=== PATIENT | male | born 1945 | race Caucasian/White ===

== ENCOUNTER 2017-05-27 15:31 | Inpatient (IN) | payer OTHER ==
[~2017-05-27] VITALS: Ht 193 cm; Wt 98.9 kg
--- NOTE | ~2017-05-27 | EKG ---
[address] [place] [address] ELECTROCARDIOGRAM REPORT Name: MAX ESTRADA Room #: 247- ADM IN M.R.#: [id number] Admission: 05/27/17 Attend Phys: Jeronimo Hare DO Discharge: Date of : 47 Report #: [id number] THIS REPORT FOR: //name// [facility] Test Date: 2017-05-31 Test Time: 06:04:59 Pat Name: MAX ESTRADA Department: Room: [facility] Gender: M Speech/Language Therapist: CHRIS : 1945 Requested By: Tiesha Maurer Order Number: [id number] MD: Damien Vogt Measurements Intervals [place] Rate: 86 P: 13 AK: 174 QRS: -6 QRSD: 102 T: -20 QT: 431 QTc: 516 Interpretive Statements Sinus rhythm Inferior infarct, age indeterminate Anteroseptal infarct, oldProlonged QT interval Compared to ECG 05/30/2017 16:37:40 No significant changes Electronically Signed On 05-31-2017 8:15:27 PATHOLOGY LABORATORY DIRECTOR by Damien Vogt [email or web address] <ELECTRONICALLY SIGNED> By: Damien Vogt MD, [facility] 05/31/17 0815 [id number] [id number] Damien Vogt MD, [facility] /EPI
--- NOTE | ~2017-05-27 | HC ---
[facility] [place] [address] CONSULTATION Name: HARVINDERDIONEMAX Victor M Room #: 150-6 ADM IN M.R.#: [id number] Admission: 05/27/17 Attend Phys: Jeronimo Hare DO Discharge: Date of : 47 Report #: [id number] THIS REPORT FOR: //name// CC: Mukul Dickinson MD DATE OF SERVICE: 05/28/2017 HISTORY OF PRESENT ILLNESS: The patient is a 71-year-old white male who was transferred from [facility] yesterday for consideration of coronary artery bypass surgery. The patient had no previous history of heart disease. However, recently he has had intermittent tightness in his chest. It is usually related to exertion and associated with diaphoresis and lightheadedness. He then noticed that on May 26, he was at home, felt a heaviness in the chest, felt lightheaded and diaphoretic. The pain was worse when he took a deep breath. It persisted most of the evening. He called the ambulance and was brought to [facility] at approximately midnight on May 26. If he belched, the discomfort seemed to improve. He was noted to have an abnormal ECG. I saw him in consultation at [facility]. I felt his symptoms were consistent with unstable angina. I recommended cardiac catheterization. This was performed on May 27, at [facility] from the right radial artery. Because of tortuous aorta, I was unable to cross the aortic valve. Coronary angiogram showed a distal 30% stenosis of the left main artery. The LAD had a proximal 60% and distal 70% stenosis. The first diagonal branch had an ostial 90% stenosis. The first marginal branch had a 60% stenosis. The second marginal branch was noted to bifurcate a small limb had a 90% stenosis. The distal circumflex appeared to be occluded and filled by collaterals. The right coronary artery appeared to have an ostial 90% stenosis with a somewhat abnormal takeoff from the right coronary cusp. There is also a 70% stenosis of the mid right coronary artery. A 90% narrowing of the ostium of the posterior descending branch and an 80% stenosis of the distal posterolateral branch of the right coronary artery. Because of his diffuse severe multivessel coronary artery disease presentation with acute coronary syndrome, I recommended for consideration of coronary artery bypass surgery. He did undergo an echocardiogram at [facility] that showed an ejection fraction 60% with evidence of mild aortic stenosis and mild aortic insufficiency. The aortic root was mildly dilated, but not aneurysmal. The patient was then transferred by ambulance last night to [facility] for consideration of coronary artery bypass surgery. PAST MEDICAL HISTORY: Significant for an appendectomy, knee surgery, and hyperlipidemia. MEDICATIONS: Consist of aspirin and Crestor. [facility] [address] [place] [address] CONSULTATION Name: MAX ESTRADA Room #: 150-6 ADM IN M.R.#: [id number] Admission: 05/27/17 Attend Phys: Jeronimo Hare DO Discharge: Date of : 47 Report #: [id number] ALLERGIES: He had no known drug allergies. FAMILY HISTORY: His mother had a heart attack. SOCIAL HISTORY: He is . He and his live in [place]. He works on computers. No smoking or alcohol use. REVIEW OF SYSTEMS: He has had no history of stroke, asthma, peptic ulcer disease, liver disease, GI bleeding, kidney disease, cancer, psychiatric illness, or chronic skin condition. PHYSICAL EXAMINATION: VITAL SIGNS: Blood pressure was 120/60, pulse is 60. NECK: No carotid bruits. CHEST: Clear to auscultation. HEENT: Mucous members moist. HEART: Regular rate and rhythm, grade 2 systolic ejection murmur. ABDOMEN: Soft. EXTREMITIES: No edema. MUSCULOSKELETAL: Joint effusions. ECG, sinus rhythm, concave ST segment elevation in V2 and V3, T-wave inversion I and aVL. Chest x-ray, normal heart size, clear lung pryor. CT scan of the chest using the PE protocol showed no pulmonary embolus or aneurysm of the aorta. CT of the abdomen unremarkable. Sodium 141, potassium 1.3, and glucose 146. Troponin 0.06. White blood cell count 14, hemoglobin 13.1. IMPRESSION AND RECOMMENDATIONS: 1. Unstable angina. Severe multivessel coronary artery disease. Recommend coronary artery bypass surgery. 2. History of hyperlipidemia. The patient has been on a statin drug. 3. Mild aortic stenosis. <ELECTRONICALLY SIGNED> By: James Sandhu MD, FACC 05/30/17 0837 1025 1534 James Sandhu MD, FACC /nt
--- NOTE | ~2017-05-27 | EKG ---
[address] [place] [address] ELECTROCARDIOGRAM REPORT Name: MAX ESTRADA Room #: 213- ADM IN M.R.#: [id number] Admission: 05/27/17 Attend Phys: Jeronimo Hare DO Discharge: Date of : 47 Report #: [id number] THIS REPORT FOR: //name// [facility] Test Date: 2017-05-27 Test Time: 22:04:46 Pat Name: MAX ESTRADA Department: Room: 213 Gender: M Mapping Pilot: Amanda MULLER : 1945 Requested By: Damien Vogt Order Number: [id number] MD: Damien Vogt Measurements Intervals [place] Rate: 110 P: [place]: QRS: -8 QRSD: 80 T: 49 QT: 330 QTc: 447 Interpretive Statements Atrial fibrillation Inferior infarct, old ST elevation, consider anterior injury No previous ECG available for comparison Electronically Signed On 05-29-2017 9:45:40 ELECTRICAL ESTIMATOR by Damien Vogt [email or web address] <ELECTRONICALLY SIGNED> By: Damine Vogt MD, [facility] 05/29/17 0945 D: [id number] Damien Vogt MD, FACC /EPI
--- NOTE | ~2017-05-27 | EKG ---
[address] [place] [address] ELECTROCARDIOGRAM REPORT Name: MAX ESTRADA Room #: 213- ADM IN M.R.#: [id number] Admission: 05/27/17 Attend Phys: Jeronimo Hare DO Discharge: Date of : 47 Report #: [id number] THIS REPORT FOR: //name// [facility] Test Date: 2017-05-29 Test Time: 07:48:43 Pat Name: MAX ESTRADA Department: Room: 213 P Gender: M Body Engineer: SCOTT : 1945 Requested By: James Sandhu Order Number: [id number] MD: Damien Vogt Measurements Intervals [place] Rate: 88 P: 18 SC: 176 QRS: -13 QRSD: 87 T: 112 QT: 396 QTc: 480 Interpretive Statements Sinus rhythm Inferior infarct, old Anteroseptal infarct, old No previous ECG available for comparison Electronically Signed On 05-29-2017 10:04:29 HOUSEKEEPING MANAGER by Damien Vogt [email or web address] <ELECTRONICALLY SIGNED> By: Damien Vogt MD, [facility] 05/29/17 1004 0748 7 Damien Vogt MD, FACC /EPI
--- NOTE | ~2017-05-27 | EKG ---
[address] [place] [address] ELECTROCARDIOGRAM REPORT Name: MAX ESTRADA Room #: 247-P ADM IN M.R.#: [id number] Admission: 05/27/17 Attend Phys: Jeronimo Hare DO Discharge: Date of : 47 Report #: [id number] THIS REPORT FOR: //name// [facility] Test Date: 2017-05-30 Test Time: 16:37:40 Pat Name: MAX ESTRADA Department: Room: [facility] Gender: M Mind Reader: Amanda MULLER : 1945 Requested By: Tiesha Maurer Order Number: [id number] MD: James Hensley Measurements Intervals [place] Rate: 84 P: 17 [place]: 187 QRS: 63 QRSD: 108 T: -27 QT: 432 QTc: 511 Interpretive Statements Sinus rhythm Probable anteroseptal infarct, old Prolonged QT interval Baseline wander in lead(s) I,II,aVR,aVL Compared to ECG 05/29/2017 07:48:43 Prolonged QT interval now present Myocardial infarct finding still present Electronically Signed On 05-30-2017 21:36:43 GUEST ATTENDANT by James Hensley [email or web address] <ELECTRONICALLY SIGNED> By: James Hensley MD 05/30/17 2136 36 36 James Hensley MD /EPI
[~2017-05-27 15:31] MED LIST: ACETAMINOPHEN325 M1 PO; ASPIRIN EC81 M1 PO; CENTRUM COMPLE1 EACH PO; CRESTOR10 MG PO; FISH OIL 1,0001 EAC7 PO; FLAXSEED OIL1000 M2 PO; FLEXERIL PO; IBUPROFEN 400400 M1 PO; LEVAQUIN 500 M500 M1 PO
[2017-05-27] MEDS ORDERED: ENOXAPARIN80 MG/0.1 SUBQ (15:46)
[2017-05-27] MEDS ORDERED: TYLENOL325 MG PO (15:46)
[2017-05-27] MEDS ORDERED: NITROGLYCERIN0.4 MG SUBLING (15:47)
[2017-05-27 17:45] VITALS: BP 127/63
[2017-05-27 19:56] VITALS: BP 108/60
[2017-05-27 23:31] VITALS: BP 94/53
[2017-05-28 03:12] LABS: URINE BILIRUBIN NEGATIVE (Negative); URINE BLOOD NEGATIVE (Negative); URINE COLOR YELLOW; URINE GLUCOSE-RANDOM* NEGATIVE (Negative); URINE KETONES 1+ (Negative); URINE LEUKOCYTES-REFLEX NEGATIVE (Negative); URINE PROTEIN (DIPSTICK) TRACE (Negative); URINE SPECIFIC GRAVITY 1.015 (1.003-1.035)
[2017-05-28 03:48] VITALS: BP 94/64
[2017-05-28 04:34] LABS: HEMATOCRIT 36.2 % (42.0-52.0); HEMOGLOBIN 12.2 gm/dL (14.0-18.0); MCH 30.2 pg (26.0-34.0); MCHC 33.7 g/dL (28.0-37.0); MCV 89.6 fL (80.0-100.0); PLATELET COUNT 192 thou/uL (150-400); RBC 4.05 mil/uL (4.50-6.00); RDW 14.2 % (10.5-14.5); WBC 8.3 thou/uL (4.0-11.0)
[2017-05-28 04:35] LABS: MANUAL DIFF YES
[2017-05-28 04:46] LABS: APTT 33.3 Seconds (24.5-32.8)
[2017-05-28 04:56] LABS: ALBUMIN 2.9 g/dL (3.4-5.0); CALCIUM 8.1 mg/dL (8.5-10.1); CREATININE 1.1 mg/dL (0.7-1.3); POTASSIUM 3.8 mmol/L (3.5-5.1); PROTIME 10.6 Seconds (9.3-11.4); TOTAL BILIRUBIN 0.7 mg/dL (<0.1-1.0); TOTAL PROTEIN 6.3 g/dL (6.4-8.2)
[2017-05-28 05:02] LABS: CHOLESTEROL 125 mg/dL (<200); HDL CHOLESTEROL 53 mg/dL (>40); LDL CHOLESTEROL 61 mg/dL (<100); SERUM ASSESSMENT Clear; TC:HDL 2.4 Ratio (Not establshd); TRIGLYCERIDE 59 mg/dL (<150); TROPONIN-I 0.24 ng/mL (<0.06); VLDL 12 mg/dL (<40)
[2017-05-28 05:44] LABS: ABSOLUTE NEUTROPHILS 5.6 thou/uL (1.4-8.2); TOTAL CELL COUNT 100
[2017-05-28 07:34] VITALS: BP 115/65
[2017-05-28 11:34] VITALS: BP 128/67
[2017-05-28 16:20] VITALS: BP 123/73
[2017-05-28 19:40] VITALS: BP 120/70
[2017-05-28 23:04] VITALS: BP 121/75
[2017-05-29 00:10] LABS: GLYCOHEMOGLOBIN (HGB A1C) 5.3 % (4.8-5.6)
[2017-05-29 03:10] LABS: ABSOLUTE NEUTROPHILS 5.3 thou/uL (1.4-8.2); BASOPHILS 0.6 % (0.0-2.0); EOSINOPHILS 2.1 % (0.0-3.0); HEMATOCRIT 37.5 % (42.0-52.0); HEMOGLOBIN 12.5 gm/dL (14.0-18.0); LYMPHOCYTES 24.8 % (24.0-44.0); MCH 30.2 pg (26.0-34.0); MCHC 33.4 g/dL (28.0-37.0); MCV 90.4 fL (80.0-100.0); MONOCYTES 11.1 % (1.0-8.0); PLATELET COUNT 219 thou/uL (150-400); POLYS 61.4 % (36.0-66.0); RBC 4.15 mil/uL (4.50-6.00); RDW 13.5 % (10.5-14.5); WBC 8.6 thou/uL (4.0-11.0)
[2017-05-29 03:24] LABS: CALCIUM 8.6 mg/dL (8.5-10.1); CREATININE 1.2 mg/dL (0.7-1.3); POTASSIUM 4.2 mmol/L (3.5-5.1); TROPONIN-I 0.15 ng/mL (<0.06)
[2017-05-29 03:35] LABS: MANUAL DIFF NO
[2017-05-29 04:35] VITALS: BP 119/77
[2017-05-29 09:19] VITALS: BP 121/74
[2017-05-29 15:20] VITALS: BP 153/71
[2017-05-29 19:45] VITALS: BP 143/74
[2017-05-30] VITALS (7 sets, daily range): BP systolic 107–12119; BP diastolic 5–95
[2017-05-30 07:50] LABS: ABSOLUTE NEUTROPHILS 6.5 thou/uL (1.4-8.2); BASOPHILS 0.8 % (0.0-2.0); EOSINOPHILS 2.1 % (0.0-3.0); HEMATOCRIT 39.2 % (42.0-52.0); HEMOGLOBIN 12.9 gm/dL (14.0-18.0); LYMPHOCYTES 13.2 % (24.0-44.0); MCH 29.3 pg (26.0-34.0); MCHC 32.9 g/dL (28.0-37.0); MONOCYTES 10.2 % (1.0-8.0); PLATELET COUNT 257 thou/uL (150-400); POLYS 73.7 % (36.0-66.0); RDW 13.5 % (10.5-14.5); WBC 8.8 thou/uL (4.0-11.0)
[2017-05-30 07:51] LABS: MANUAL DIFF NO
[2017-05-30 07:56] LABS: CALCIUM 8.7 mg/dL (8.5-10.1); CREATININE 1.1 mg/dL (0.7-1.3); POTASSIUM 4.1 mmol/L (3.5-5.1)
[2017-05-30 15:08] LABS: APTT 35.7 Seconds (24.5-32.8); FIBRINOGEN 300.8 mg/dL (210-360); INR 1.4; PROTIME 14.7 Seconds (9.3-11.4)
[2017-05-30 15:16] LABS: HEMATOCRIT 24.5 % (42.0-52.0); HEMOGLOBIN 8.1 gm/dL (14.0-18.0); MCH 29.8 pg (26.0-34.0); MCHC 33.3 % (28.0-37.0); MCV 89.5 fL (80.0-100.0); RBC 2.74 mil/uL (4.50-6.00); RDW 13.2 % (10.5-14.5); WBC 11.5 thou/uL (4.0-11.0)
[2017-05-30 15:47] LABS: POC BE -4 mmol/L (-2.0 to +3.0); POC CA IONIZED 4.6 mg/dL (4.5-5.3); POC FiO2 100 %; POC GLUCOSE 145 mg/dL (70-99); POC HCO3 20.5 mmol/L (22.0-26.0); POC HEMOGLOBIN 11.9 g/dL (14.0-18.0); POC POTASSIUM 4.6 mmol/L (3.5-5.1); POC SODIUM 138 mmol/L (136-145); POC pCO2 31.6 mmHg (35.0-45.0); POC pH 7.418 (7.360-7.450)
[2017-05-30 15:47] LABS: POC BE -1 mmol/L (-2.0 to +3.0); POC CA IONIZED 5.6 mg/dL (4.5-5.3); POC FiO2 100 %; POC GLUCOSE 149 mg/dL (70-99); POC HCO3 24.6 mmol/L (22.0-26.0); POC HEMOGLOBIN 8.2 g/dL (14.0-18.0); POC POTASSIUM 4.3 mmol/L (3.5-5.1); POC SODIUM 140 mmol/L (136-145); POC pH 7.345 (7.360-7.450)
[2017-05-30 15:47] LABS: POC BE -3 mmol/L (-2.0 to +3.0); POC CA IONIZED 4.4 mg/dL (4.5-5.3); POC FiO2 100 %; POC GLUCOSE 157 mg/dL (70-99); POC HCO3 22.2 mmol/L (22.0-26.0); POC HEMOGLOBIN 9.9 g/dL (14.0-18.0); POC POTASSIUM 4.8 mmol/L (3.5-5.1); POC SODIUM 137 mmol/L (136-145); POC pCO2 38.8 mmHg (35.0-45.0); POC pH 7.366 (7.360-7.450)
[2017-05-30 15:47] LABS: POC BE 0 mmol/L (-2.0 to +3.0); POC CA IONIZED 4.4 mg/dL (4.5-5.3); POC FiO2 100 %; POC GLUCOSE 162 mg/dL (70-99); POC HCO3 25.9 mmol/L (22.0-26.0); POC HEMOGLOBIN 8.8 g/dL (14.0-18.0); POC POTASSIUM 4.7 mmol/L (3.5-5.1); POC SODIUM 142 mmol/L (136-145); POC pCO2 50.7 mmHg (35.0-45.0); POC pH 7.316 (7.360-7.450)
[2017-05-30 15:47] LABS: POC BE -1 mmol/L (-2.0 to +3.0); POC CA IONIZED 4.5 mg/dL (4.5-5.3); POC FiO2 100 %; POC GLUCOSE 180 mg/dL (70-99); POC HEMOGLOBIN 9.5 g/dL (14.0-18.0); POC POTASSIUM 4.3 mmol/L (3.5-5.1); POC SODIUM 141 mmol/L (136-145); POC pCO2 49.8 mmHg (35.0-45.0)
[2017-05-30 15:47] LABS: POC BE -3 mmol/L (-2.0 to +3.0); POC CA IONIZED 4.8 mg/dL (4.5-5.3); POC FiO2 100 %; POC GLUCOSE 137 mg/dL (70-99); POC HCO3 22.2 mmol/L (22.0-26.0); POC HEMOGLOBIN 10.5 g/dL (14.0-18.0); POC POTASSIUM 4.1 mmol/L (3.5-5.1); POC SODIUM 141 mmol/L (136-145); POC pCO2 35.4 mmHg (35.0-45.0); POC pH 7.405 (7.360-7.450)
[2017-05-30 15:47] LABS: POC BE 0 mmol/L (-2.0 to +3.0); POC CA IONIZED 4.5 mg/dL (4.5-5.3); POC FiO2 100 %; POC GLUCOSE 186 mg/dL (70-99); POC HCO3 25.5 mmol/L (22.0-26.0); POC HEMOGLOBIN 9.5 g/dL (14.0-18.0); POC POTASSIUM 4.5 mmol/L (3.5-5.1); POC SODIUM 140 mmol/L (136-145); POC pH 7.352 (7.360-7.450)
[2017-05-30 15:47] LABS: POC BE -2 mmol/L (-2.0 to +3.0); POC CA IONIZED 4.6 mg/dL (4.5-5.3); POC FiO2 100 %; POC GLUCOSE 118 mg/dL (70-99); POC HCO3 22.2 mmol/L (22.0-26.0); POC HEMOGLOBIN 12.2 g/dL (14.0-18.0); POC POTASSIUM 4.6 mmol/L (3.5-5.1); POC SODIUM 137 mmol/L (136-145); POC pCO2 31.6 mmHg (35.0-45.0); POC pH 7.453 (7.360-7.450)
[2017-05-30 15:47] LABS: POC BE 2 mmol/L (-2.0 to +3.0); POC CA IONIZED 4.3 mg/dL (4.5-5.3); POC FiO2 100 %; POC GLUCOSE 169 mg/dL (70-99); POC HEMOGLOBIN 9.5 g/dL (14.0-18.0); POC POTASSIUM 4.8 mmol/L (3.5-5.1); POC SODIUM 138 mmol/L (136-145); POC pCO2 42.6 mmHg (35.0-45.0)
[2017-05-30 15:47] LABS: POC BE -6 mmol/L (-2.0 to +3.0); POC CA IONIZED 4.4 mg/dL (4.5-5.3); POC FiO2 100 %; POC GLUCOSE 152 mg/dL (70-99); POC HEMOGLOBIN 10.5 g/dL (14.0-18.0); POC POTASSIUM 4.7 mmol/L (3.5-5.1); POC SODIUM 137 mmol/L (136-145); POC pCO2 37.6 mmHg (35.0-45.0); POC pH 7.335 (7.360-7.450)
[2017-05-30 15:47] LABS: POC BE 1 mmol/L (-2.0 to +3.0); POC CA IONIZED 4.3 mg/dL (4.5-5.3); POC FiO2 100 %; POC GLUCOSE 187 mg/dL (70-99); POC HCO3 25.8 mmol/L (22.0-26.0); POC HEMOGLOBIN 9.5 g/dL (14.0-18.0); POC POTASSIUM 5.1 mmol/L (3.5-5.1); POC SODIUM 139 mmol/L (136-145); POC pCO2 44.1 mmHg (35.0-45.0); POC pH 7.376 (7.360-7.450)
[2017-05-30 15:47] LABS: POC BE -3 mmol/L (-2.0 to +3.0); POC FiO2 100 %; POC GLUCOSE 142 mg/dL (70-99); POC HCO3 21.8 mmol/L (22.0-26.0); POC HEMOGLOBIN 8.2 g/dL (14.0-18.0); POC POTASSIUM 3.9 mmol/L (3.5-5.1); POC SODIUM 141 mmol/L (136-145); POC pCO2 37.5 mmHg (35.0-45.0); POC pH 7.372 (7.360-7.450)
[2017-05-30 16:30] LABS: CALCIUM 8.5 mg/dL (8.5-10.1); CREATININE 1.3 mg/dL (0.7-1.3); MAGNESIUM 2.5 mg/dL (1.8-2.4); POTASSIUM 4.3 mmol/L (3.5-5.1)
[2017-05-30 17:01] LABS: ABG SAMPLE TYPE ARTERIAL; BE(vivo) -7.2 mmol/L (-2 to +3); HCO3 18.5 mmol/L (22.0-26.0); LACTATE 1.57 mmol/L (0.5-2.0); O2(CT) 17.3 mL/dL (15.0-23.0); O2Hb 97.4 % (92.0-98.0); PO2 131.9 mmHg (80.0-100.0); sO2 98.4 % (92.0-98.0); tCO2 19.7 mmol/L (24.0-30.0)
[2017-05-30 17:02] LABS: STICK SITE ALINE; TIDAL VOLUME 650 ml; pH 7.305 (7.360-7.450)
[2017-05-30 17:23] LABS: HEMATOCRIT 33.7 % (42.0-52.0); HEMOGLOBIN 11.3 gm/dL (14.0-18.0); MCH 30.2 pg (26.0-34.0); MCHC 33.7 g/dL (28.0-37.0); MCV 89.7 fL (80.0-100.0); PLATELET COUNT 175 thou/uL (150-400); RBC 3.76 mil/uL (4.50-6.00); RDW 13.7 % (10.5-14.5); WBC 17.4 thou/uL (4.0-11.0)
[2017-05-30 17:24] LABS: MANUAL DIFF YES
[2017-05-30 17:37] LABS: APTT 34.3 Seconds (24.5-32.8); FIBRINOGEN 359.7 mg/dL (210-360)
[2017-05-30 17:41] LABS: ABSOLUTE NEUTROPHILS 15.1 thou/uL (1.4-8.2); TOTAL CELL COUNT 100
[2017-05-30 17:59] LABS: INR 1.2; PROTIME 11.9 Seconds (9.3-11.4)
[2017-05-30 18:37] LABS: ABG SAMPLE TYPE ARTERIAL; BE(vivo) -4.7 mmol/L (-2 to +3); HCO3 19.6 mmol/L (22.0-26.0); LACTATE 1.73 mmol/L (0.5-2.0); O2(CT) 15.7 mL/dL (15.0-23.0); O2Hb 95.1 % (92.0-98.0); PCO2 33.8 mmHg (35.0-45.0); PO2 84.9 mmHg (80.0-100.0); STICK SITE ALINE; TIDAL VOLUME 650 ml; pH 7.381 (7.360-7.450); sO2 96.3 % (92.0-98.0); tCO2 20.6 mmol/L (24.0-30.0)
[2017-05-30 18:38] LABS: ABG COMMENT CMV
[2017-05-30 19:07] LABS: ABG SAMPLE TYPE ARTERIAL; BE(vivo) -5.4 mmol/L (-2 to +3); HCO3 19.5 mmol/L (22.0-26.0); LACTATE 1.96 mmol/L (0.5-2.0); O2(CT) 16.3 mL/dL (15.0-23.0); O2Hb 96.5 % (92.0-98.0); PCO2 36.2 mmHg (35.0-45.0); PO2 101.4 mmHg (80.0-100.0); sO2 97.4 % (92.0-98.0); tCO2 20.6 mmol/L (24.0-30.0)
[2017-05-30 19:08] LABS: ABG COMMENT CPAP TRIAL.; Pressure Support 6 cm H20; STICK SITE ALINE
[2017-05-30 20:20] LABS: HEMATOCRIT 32.5 % (42.0-52.0); HEMOGLOBIN 10.9 gm/dL (14.0-18.0)
[2017-05-30 20:24] LABS: CREATININE 1.3 mg/dL (0.7-1.3); MAGNESIUM 2.1 mg/dL (1.8-2.4)
[2017-05-30 20:27] LABS: ABG SAMPLE TYPE ARTERIAL; BE(vivo) -1.5 mmol/L (-2 to +3); LACTATE 1.72 mmol/L (0.5-2.0); PCO2 37.9 mmHg (35.0-45.0); pH 7.401 (7.360-7.450); sO2 98.1 % (92.0-98.0); tCO2 24.2 mmol/L (24.0-30.0)
[2017-05-30 20:28] LABS: STICK SITE ALINE
[2017-05-31] VITALS (11 sets, daily range): BP systolic 101–130; BP diastolic 56–75
[2017-05-31 05:06] LABS: ABG SAMPLE TYPE ARTERIAL; BE(vivo) 0.3 mmol/L (-2 to +3); HCO3 24.5 mmol/L (22.0-26.0); LACTATE 1.23 mmol/L (0.5-2.0); O2(CT) 14.9 mL/dL (15.0-23.0); O2Hb 95.6 % (92.0-98.0); PO2 81.6 mmHg (80.0-100.0); pH 7.428 (7.360-7.450); sO2 96.3 % (92.0-98.0); tCO2 25.7 mmol/L (24.0-30.0)
[2017-05-31 05:07] LABS: STICK SITE LINE
[2017-05-31 05:16] LABS: HEMATOCRIT 30.7 % (42.0-52.0); HEMOGLOBIN 10.3 gm/dL (14.0-18.0); MCHC 33.7 g/dL (28.0-37.0); RBC 3.44 mil/uL (4.50-6.00); RDW 13.4 % (10.5-14.5); WBC 14.3 thou/uL (4.0-11.0)
[2017-05-31 05:21] LABS: CALCIUM 8.3 mg/dL (8.5-10.1); CREATININE 1.1 mg/dL (0.7-1.3); MAGNESIUM 2.2 mg/dL (1.8-2.4); POTASSIUM 3.9 mmol/L (3.5-5.1)
[2017-06-01 03:51] VITALS: BP 118/68
[2017-06-01 04:50] LABS: HEMATOCRIT 28.9 % (42.0-52.0); HEMOGLOBIN 9.4 gm/dL (14.0-18.0); MCH 29.4 pg (26.0-34.0); MCHC 32.6 g/dL (28.0-37.0); MCV 90.2 fL (80.0-100.0); RBC 3.21 mil/uL (4.50-6.00); RDW 13.6 % (10.5-14.5); WBC 14.9 thou/uL (4.0-11.0)
[2017-06-01 04:53] LABS: CALCIUM 8.2 mg/dL (8.5-10.1); CREATININE 1.3 mg/dL (0.7-1.3); POTASSIUM 4.3 mmol/L (3.5-5.1)
[2017-06-01 08:10] VITALS: BP 125/71
[2017-06-01 11:42] VITALS: BP 125/71
[2017-06-01 16:33] VITALS: BP 112/63
[2017-06-01 19:43] VITALS: BP 116/67
[2017-06-01 23:46] VITALS: BP 104/64
[2017-06-02 02:46] VITALS: BP 100/56
[2017-06-02 02:58] LABS: CALCIUM 8.1 mg/dL (8.5-10.1); CREATININE 1.1 mg/dL (0.7-1.3); POTASSIUM 3.9 mmol/L (3.5-5.1)
[2017-06-02 07:06] VITALS: BP 122/64
[2017-06-02 11:43] VITALS: BP 101/61
[2017-06-02 14:53] VITALS: BP 104/56
[2017-06-02 19:49] VITALS: BP 135/73
[2017-06-03 03:49] VITALS: BP 92/55
[2017-06-03 07:09] VITALS: BP 123/72
[2017-06-03] MEDS ORDERED: FERREX 150 PLU1 EAC1 PO (08:26)
[2017-06-03] MEDS ORDERED: PACERONE 200 M200 M1 PO (08:27)
[2017-06-03] MEDS ORDERED: LOPRESSOR50 PO (08:27)
[2017-06-03 11:58] VITALS: BP 131/72
[2017-06-03 12:51] VITALS: BP 131/72
== END 2017-06-03 13:46 | disposition home or self-care (01) | DRG 236 ==
LOC: 2N 15:31 → TBA 17:40 → ICU 05-30 16:48 → 2N 05-31 18:14
PROVIDERS: Family Medicine; Internal Medicine Geriatric Medicine; Nurse Practitioner; Thoracic Surgery (Cardiothoracic Vascular Surgery)
PROC: 021209W Bypass Coronary Artery, Three Arteries from Aorta with Autologous Venous Tissue, Open Approach (ICD-10-PCS; principal; 2017-05-30)
PROC: 06BQ4ZZ Excision of Left Saphenous Vein, Percutaneous Endoscopic Approach (ICD-10-PCS; principal; 2017-05-30)
PROC: 02100Z9 Bypass Coronary Artery, One Artery from Left Internal Mammary, Open Approach (ICD-10-PCS; principal; 2017-05-30)
PROC: 03BB3ZZ Excision of Right Radial Artery, Percutaneous Approach (ICD-10-PCS; principal; 2017-05-30)
PROC: 5A1221Z Performance of Cardiac Output, Continuous (ICD-10-PCS; principal; 2017-05-30)
DX: I21.4 Non-ST elevation (NSTEMI) myocardial infarction (principal); D62 Acute posthemorrhagic anemia; I25.110 Atherosclerotic heart disease of native coronary artery with unstable angina pectoris; F41.9 Anxiety disorder, unspecified; I35.1 Nonrheumatic aortic (valve) insufficiency; I48.0 Paroxysmal atrial fibrillation; I35.0 Nonrheumatic aortic (valve) stenosis; E78.5 Hyperlipidemia, unspecified; Z90.49 Acquired absence of other specified parts of digestive tract; Z82.49 Family history of ischemic heart disease and other diseases of the circulatory system; Z87.891 Personal history of nicotine dependence; Z79.82 Long term (current) use of aspirin; Z79.899 Other long term (current) drug therapy
CPT/HCPCS: 10078; 10081; 47000; 47001; 47002; 47297; 48888; 50010; 50249; 50409; 50456; 50497; 50668; 51301; 52131; 52190; 52314; 53327; 53358; 54118; 56524; 56525; 56526; 56527; 56528; 56529; 56531; 56534; 56639; 56660; 56668; 56760; 56898; 57093; 62110; 62950; 64029; 64031; 65002; 65003; 65020; 65043; 65090; 65120; 83006